=== PATIENT | male | born 1950 | race Caucasian/White ===

== ENCOUNTER 2018-03-22 11:25 | Emergency (ER) | payer OTHER ==
[~2018-03-22] VITALS: Ht 167.6 cm; Wt 78.9 kg
== END 2018-03-22 13:30 | disposition home or self-care (01) ==
LOC: ER 11:25
DX: S61.411S Laceration without foreign body of right hand, sequela (principal); W45.8XXS Other foreign body or object entering through skin, sequela

== ENCOUNTER → 2018-04-20 | Emergency (ER) | payer OTHER ==
[~2018-04-20] VITALS: Ht 167.6 cm; Wt 78.0 kg
== END | disposition home or self-care (01) ==
LOC: ER 11:25
DX: L03.012 Cellulitis of left finger (principal)